=== PATIENT | male | born 1990 | race African-American/Black ===

== ENCOUNTER 2016-09-01 22:38 | Emergency (ER) | payer OTHER ==
[~2016-09-01] VITALS: Ht 188 cm; Wt 88.5 kg
[2016-09-01 22:40] VITALS: BP 140/80
[2016-09-01] MEDS ORDERED: fentaNYL 100 mcg/2 mL IV ONE (23:00)
[2016-09-01] MEDS ORDERED: Etomidate 40mg/20ml Inj IV ONE (23:00)
[2016-09-02] VITALS (12 sets, daily range): BP systolic 114–166; BP diastolic 64–94
[2016-09-02] MEDS ORDERED: Ketorolac 30mg Inj IV ONE (00:30)
[2016-09-02] MEDS ORDERED: fentaNYL 100 mcg/2 mL IV ONE (00:30)
[2016-09-02] MEDS ORDERED: Bacitracin Oint UD TOPIC ONE (01:29)
--- NOTE | 2016-09-02 01:38 | Emergency Room Report ---
History of Present Illness General Chief Complaint: Lower Extremity Injury Source: EMS Present Illness HPI Patient presents with foot and ankle pain post miss-stepping at home. No other trauma. No LOC. Paramedics placed in air splint and gave morphine. Pain 7/10, severe, localized, sharp aching. No numbness. Skin intact. No knee pain. Patient denies medical problems. Last ate at 5 pm. Allergies: Coded Allergies: No Known Allergies (Unverified , 09/01/16) Patient History Past Medical History: see triage record Social History: Reports: drug use - thc, Denies: alcohol use, smoking Social History Narrative brand ambassador promotional model Reviewed Nursing Documentation: PMH: Agreed, PSxH: Agreed Nursing Documentation-PMH Past Medical History: No Stated History Review of Systems All Other Systems: negative except mentioned in HPI Physical Exam Vital Signs Date Time Temp Pulse Resp B/P Pulse Ox O2 Delivery O2 Flow Rate FiO2 09/01/16 22:38 97.3 86 18 140/80 100 Room Air Sp02 EP Interpretation: reviewed, normal General Appearance: well appearing, no apparent distress, GCS 15 Head: normocephalic Eyes: bilateral eye PERRL, bilateral eye normal inspection ENT: moist mucus membranes, other - Mallipati 2 Neck: supple Respiratory: chest non-tender, lungs clear, normal breath sounds Cardiovascular #1: regular rate, rhythm Cardiovascular #2: 2+ radial (R), 2+ dorsalis pedis (R) - good cap fill of toes Gastrointestinal: normal inspection, normal bowel sounds, non tender, no mass, non-distended Musculoskeletal: back normal, other - lateral deformity of foot or ankle, moves toes, knee not tender, ligs intact Neurologic: alert, oriented x3, grossly normal Psychiatric: mood/affect normal - in pain Skin: warm/dry, abrasions - superficial medially, skin intact Procedures Joint Reduction Joint Reduction : Consent: Written Joint Reduction Site: other - R foot Procedural Sedation: Yes Reduction Attempts: One Pre-Procedure NV Exam: Yes Post-Procedure NV Exam: Yes Post Joint Reduction Film: joint reduced Patient Tolerated: Well Complications: None Progress Traction and maneuvering dislocation over proximal portion. Anatomic alignment naturally with stability. Splint applied by myself and techs. Position excellent and neurovasc intact as checked by me. Post reduction R foot x-ray 3 views reviewed by me. No fx, reduced, STS. Abnormal. Indication: post reduction. (Jonathan) Procedural Sedation Consent: Written Pre-Sedation Assessment: Pre-proc Edu. done, Plan for Sedation Discuss Airway Assessment (Malampati): II Heart: normal Lungs: normal Abdomen: normal Extremities: abnormal - dislocated R foot Procedures/Plans: Closed Reduction Plan for Moderate Sedation: Other - etomidate ASA Score: I Start Time: 01:19 End Time: 01:35 Communication: No Apparent Limitation Mental Status: Awake Respiration: Unlabored Skin Condition: WNL Abdomen: WNL Nausea: NO Vomiting: NO Medical Decision Making Diagnostic Impression: Primary Impression: Dislocation of right foot Qualified Codes: S93.304A - Unspecified dislocation of right foot, initial encounter ER Course Dislocation of R ankle/foot suspected. Need pre-reduction films to r/o fx. Needs urgent reduction. Will focus on analgesia prior to reduction. (Mechanism of fall not completely consistent with history. It would take great torque force to dislocate in this way.) See procedure notes. Tolerated reduction well. Post films without significant fx. STS. Improved, ambulatory and baseline. The patient is stable for outpatient observation and treatment. Rhythm Strip Diag. Results EP Interpretation: yes Rhythm: no PVC's, no ectopy, other - bradycardia Other X-Ray Diagnostic Results # of Views/Limited Vs Complete: 2 View EP Interpretation: Yes Interpretation: no fractures, no soft tissue swelling, other - proximal foot dislocation Indication: Pain Impression: Other Interpreting ER Provider: jonathan Last Vital Signs Date Time Temp Pulse Resp B/P Pulse Ox O2 Delivery O2 Flow Rate FiO2 09/02/16 06:30 98.9 62 18 114/64 100 Room Air Status: improved Disposition: HOME, SELF-CARE Condition: Improved Scripts Ibuprofen* (MOTRIN*) 600 Mg Tablet 600 MG ORAL Q6H Y for For Pain, #20 TAB Prov: Epifanio Castillo M.D. 09/02/16 Tramadol Hcl* (ULTRAM*) 50 Mg Tablet 50 MG ORAL Q6H Y for For Pain, #14 TAB 0 Refills Prov: Epifanio Castillo M.D. 09/02/16 Referrals: Lawrence LI,REFERRING (PCP) Epifanio Castillo M.D. Sep 02, 2016 01:38
[2016-09-02] MEDS ORDERED: IBUPROFEN600 MG ORAL (04:06)
[2016-09-02] MEDS ORDERED: TRAMADOL HCL50 MG ORAL (04:06)
--- NOTE | 2016-09-02 08:37 | Diagnostic Imaging Report ---
Indications: Right hindfoot dislocation, status post closed reduction and splinting Technique: 3 portable views of the right foot Findings: Comparison: 09/01/16 Previously dislocated talonavicular and subtalar joints appear normally aligned. No fracture identified. Posterior fiberglass splint has been applied. IMPRESSION: Apparently successful closed reduction of hindfoot dislocation as described, splinted
--- NOTE | 2016-09-02 10:38 | Diagnostic Imaging Report ---
Indications: Fall, right ankle trauma, pain and deformity Technique: 2 views right ankle Findings: Comparison: None The calyx demonstrates complete bone width lateral dislocation relative to the calcaneus and navicular. Distal tibia and fibula maintain articulation with the talus. Mild widening of the tibiotalar joint space not excludable. No definite fracture identified. IMPRESSION: Hindfoot dislocation through the talonavicular and subtalar joints. Tibiotalar joint grossly intact, though may be mildly widened. No fracture identified, though small intra-articular fracture fragments cannot be excluded.
== END 2016-09-02 06:30 | disposition home or self-care (01) ==
LOC: EDBD 22:38 → EMR 23:12
DX: S93.04XA Dislocation of right ankle joint, initial encounter (principal); W19.XXXA Unspecified fall, initial encounter; Y92.019 Unspecified place in single-family (private) house as the place of occurrence of the external cause
CPT/HCPCS: 28575; 73600; 73630; 96374; 96375; 99284; J1885; J2405; J3010; Z7502